=== PATIENT | female | born 1940 | race Caucasian/White ===

== ENCOUNTER 2020-03-29 07:27 | Observation (INO) | payer MEDICARE ==
[~2020-03-29] VITALS: Ht 165.1 cm; Wt 66.3 kg
[2020-03-29 08:33] LABS: HEMATOCRIT 35.5 % (37.0-47.0); HEMOGLOBIN 10.9 g/dl (12.0-16.0); IMMATURE GRANULOCYTES 0.4 % (0.0-5.0); MEAN CELL VOLUME 102.6 fL CALC (80.0-100.0); MEAN CORPUSCULAR HGB 31.5 pG CALC (26.0-32.0); MEAN CORPUSCULAR HGB CONC 30.7 g/dL CAL (32.0-36.0); NEUT# 7.81 thou/uL (2.00-7.15); RED BLOOD COUNT 3.46 mill/uL (4.20-5.60); RED CELL DISTRI WIDTH 13.9 % (11.5-15.5)
[2020-03-29 08:49] LABS: URINE BLOOD DIPSTICK TRACE-LYSED (NEGATIVE); URINE GLUCOSE - DIPSTICK 100 mg/dL (NEGATIVE); URINE KETONE TRACE mg/dL (NEGATIVE); URINE PROTEIN - DIPSTICK 100 mg/dL (NEG-TRACE)
[2020-03-29 08:55] LABS: ALBUMIN 4.3 g/dL (3.2-5.0); ALKALINE PHOSPHATASE 110 u/l (38-126); ANION GAP 16 (6-22 (CALC)); BILIRUBIN, TOTAL 0.5 mg/dL (0.0-1.4); BUN 42 mg/dL (8-23); BUN/CREATININE RATIO 14 (12-20 (CALC)); CARBON DIOXIDE 25 mmol/l (22-30); CHLORIDE 102 mmol/l (95-108); CREATININE 3.1 mg/dL (0.5-1.0); GFR 14 ML/MIN (>=60 (CALC)); GFR FOR AFR.AMER. 17 ML/MIN (>=60 (CALC)); LIPASE 39 u/l (23-300); POTASSIUM 4.8 mmol/l (3.5-5.1); SGOT/AST 19 u/l (9-36); SODIUM 139 mmol/l (137-146)
[2020-03-29 08:58] LABS: URINE BILIRUBIN - DIPSTICK SMALL (NEGATIVE); URINE COLOR ORANGE; URINE LEUK ESTERASE MODERATE (NEGATIVE); URINE NITRITE - DIPSTICK POSITIVE (Negative)
[2020-03-29 08:59] LABS: URINE BACTERIA FEW hpf; URINE EPITHELIAL CELLS FEW EPI/hpf (0-FEW); URINE RBC 0-2 RBC/hpf (0-5)
[2020-03-29 09:01] LABS: ACT PARTIAL THROMBO TIME 22.6 SECONDS (20.0-32.5); INTERNATIONAL NORMALIZED RATIO 0.9 RATIO (0.7-1.3); PROTHROMBIN TIME 9.4 SECONDS (9.0-12.5)
[2020-03-29] MEDS ORDERED: LIPITOR20 M1 PO (09:15)
[2020-03-29] MEDS ORDERED: BUMETANIDE1 MG PO (09:16)
[2020-03-29] MEDS ORDERED: FAMOTIDINE20 M1 PO (09:16)
[2020-03-29] MEDS ORDERED: PLAVIX75 MG PO (09:16)
[2020-03-29] MEDS ORDERED: GABAPENTIN100 MG PO (09:17)
[2020-03-29] MEDS ORDERED: METFORMIN500 M2 PO (09:17)
[2020-03-29] MEDS ORDERED: REMERON7.5 MG PO (09:18)
[2020-03-29] MEDS ORDERED: METOPROL TAR25 M1 PO (09:18)
[2020-03-29] MEDS ORDERED: MUCINEX600 MG PO (09:20)
[2020-03-29] MEDS ORDERED: PROTONIX40 M2 PO (09:20)
[2020-03-29] MEDS ORDERED: PHENAZOPYRID200 MG PO (09:21)
[2020-03-29] MEDS ORDERED: POTASSIUM CHLO10 MEQ PO (09:22)
[2020-03-29] MEDS ORDERED: SMZ-TMP DS1 TAB PO (09:23)
[2020-03-29] MEDS ORDERED: VENLAFAXINE HCL75 M2 PO (09:23)
[2020-03-29] MEDS ORDERED: VITAMIN B-12500 MCG PO (09:24)
[2020-03-29] MEDS ORDERED: CIPROFLOXACN500 MG PO (09:49)
[2020-03-29 13:26] VITALS: BP 146/78
[2020-03-29 15:08] VITALS: BP 131/68
[2020-03-29 20:00] VITALS: BP 132/76
[2020-03-29 23:50] VITALS: BP 134/79
[2020-03-30 04:00] VITALS: BP 117/72
[2020-03-30 07:41] VITALS: BP 114/68
[2020-03-30 10:15] LABS: HEMATOCRIT 34.6 % (37.0-47.0); HEMOGLOBIN 9.8 g/dl (12.0-16.0); IMMATURE GRANULOCYTES 0.2 % (0.0-5.0); MEAN CORPUSCULAR HGB CONC 28.3 g/dL CAL (32.0-36.0); NEUT# 3.27 thou/uL (2.00-7.15); RED BLOOD COUNT 3.16 mill/uL (4.20-5.60); RED CELL DISTRI WIDTH 13.6 % (11.5-15.5)
[2020-03-30 10:17] LABS: MEAN CELL VOLUME 109.5 fL CALC (80.0-100.0)
[2020-03-30 10:19] LABS: ALBUMIN 3.5 g/dL (3.2-5.0); BILIRUBIN, TOTAL 0.4 mg/dL (0.0-1.4); POTASSIUM 4.3 mmol/l (3.5-5.1)
[2020-03-30 10:20] LABS: CREATININE 1.6 mg/dL (0.5-1.0)
[2020-03-30 11:00] VITALS: BP 109/65
[2020-03-30 15:55] VITALS: BP 120/67
[2020-03-30 19:39] VITALS: BP 136/83
[2020-03-30 23:00] VITALS: BP 141/87
[2020-03-31 04:44] VITALS: BP 126/82
[2020-03-31 05:31] LABS: HEMATOCRIT 33.6 % (37.0-47.0); HEMOGLOBIN 10.1 g/dl (12.0-16.0); MEAN CELL VOLUME 105.3 fL CALC (80.0-100.0); MEAN CORPUSCULAR HGB 31.7 pG CALC (26.0-32.0); MEAN CORPUSCULAR HGB CONC 30.1 g/dL CAL (32.0-36.0); RED BLOOD COUNT 3.19 mill/uL (4.20-5.60); RED CELL DISTRI WIDTH 13.3 % (11.5-15.5)
[2020-03-31 05:57] LABS: CREATININE 1.2 mg/dL (0.5-1.0); POTASSIUM 4.7 mmol/l (3.5-5.1)
[2020-03-31 07:38] VITALS: BP 132/69
[2020-03-31 10:30] VITALS: BP 109/71
[2020-03-31] MEDS ORDERED: PHENAZOPYRID200 MG PO (11:40)
== END 2020-03-31 14:46 | disposition home health service (06) ==
LOC: EDBD 07:27 → ED 07:27 → ED-I 11:16 → ED 11:27 → MS2 11:28
PROVIDERS: Nurse Practitioner; ADMIT Internal Medicine; ATTEND Internal Medicine
PROC: 2W3CX1Z Immobilization of Right Lower Arm using Splint (ICD-10-PCS; principal; 2020-03-29)
PROC: 3E02340 Introduction of Influenza Vaccine into Muscle, Percutaneous Approach (ICD-10-PCS; 2020-03-31)
DX: N17.9 Acute kidney failure, unspecified (principal); N39.0 Urinary tract infection, site not specified; S00.83XA Contusion of other part of head, initial encounter; S52.501A Unspecified fracture of the lower end of right radius, initial encounter for closed fracture; S52.614A Nondisplaced fracture of right ulna styloid process, initial encounter for closed fracture; S41.111A Laceration without foreign body of right upper arm, initial encounter; I11.0 Hypertensive heart disease with heart failure; I50.9 Heart failure, unspecified; E11.40 Type 2 diabetes mellitus with diabetic neuropathy, unspecified; I25.10 Atherosclerotic heart disease of native coronary artery without angina pectoris; E78.5 Hyperlipidemia, unspecified; K21.9 Gastro-esophageal reflux disease without esophagitis; F41.9 Anxiety disorder, unspecified; F32.9 Major depressive disorder, single episode, unspecified; W06.XXXA Fall from bed, initial encounter; Y92.092 Bedroom in other non-institutional residence as the place of occurrence of the external cause; Z23 Encounter for immunization; Z79.84 Long term (current) use of oral hypoglycemic drugs; Z20.822 Contact with and (suspected) exposure to COVID-19